=== PATIENT | female | born 1935 | race Caucasian/White ===

== ENCOUNTER 2020-07-12 13:36 | Inpatient (IN) | payer MEDICARE ==
[2020-07-12 14:13] LABS: HEMOGLOBIN 11.8 g/dL (12-16); MCH 28.3 pg (26.0-34.0); MCHC 32.9 g/dL (31.0-37.0); MEAN PLATELET VOLUME 7.3 fL (7.4-10.4); PLATELET COUNT 294 10x3/uL (130-400); RBC 4.19 10x6/uL (4.00-5.40); RDW 13.9 % (11.5-14.5); WBC 6.5 10x3/uL (4.8-10.8)
[2020-07-12 14:25] LABS: CALCIUM 9.7 mg/dL (8.5-10.1); CARBON DIOXIDE 27.1 mmol/L (21.0-32.0); CREATININE - SERUM 0.9 mg/dL (0.6-1.3); POTASSIUM - SERUM 5.1 mmol/L (3.5-5.1)
[2020-07-12 14:31] LABS: BILIRUBIN - TOTAL 0.29 mg/dL (0.2-1.3); PROTEIN - SERUM 7.6 g/dL (6.4-8.2)
--- NOTE | 2020-07-12 14:50 | NUR ---
URINE SPEC COLLECTED, LABELED AT BS AND SENT TO LAB
[2020-07-12 15:01] LABS: BILIRUBIN NEGATIVE (NEGATIVE); KETONE NEGATIVE (NEGATIVE); NITRITE NEGATIVE (NEGATIVE); UROBILINOGEN NORMAL mg/dL (< 2)
[2020-07-12 15:02] LABS: BACTERIA FEW HPF (NONE SEEN); SQUAMOUS EPITHELIAL 0-5 HPF (0-4); WHITE CELLS - URINE 0-5 HPF (0-4)
--- NOTE | 2020-07-12 15:20 | NUR ---
REPORT TO [facility] RUBI. ACCEPTED BY DR ARCHIBALD
[2020-07-12 15:40] VITALS: BP 118/80
--- NOTE | 2020-07-12 15:44 | NUR ---
ADMIT TO CARE. TRANSPORTED VIA WITH TECH. CONDITION STABLE
[2020-07-12 15:54] LABS: SARS-CoV-2 ANTIGEN NEGATIVE- SARS-COV-2 (NEGATIVE)
[2020-07-12 16:08] LABS: EOSINOPHILS 3 % (0-7); LYMPHOCYTES 23 % (15-50); MONOCYTES 1 % (2-11); NEUTROPHILS 73 % (40-80); PLATELET ESTIMATE NORMAL
[2020-07-12 16:33] VITALS: BP 157/75; BMI 18.2
--- NOTE | 2020-07-12 17:45 | NUR ---
NEW ADMIT TO DR UMSA ON [facility] FOR ALTERED MENTAT STATUS. REFERRED BY ANGELICA LAIRD WITH APS. PATIENT LIVES ALONE. CALLED HER SISTER 10 TIMES AND THEN WALKED TO HER NEIGHBORS HOUSE TO REPORT THAT HER SISTER AND HAD BEEN KIDNAPPED AND KILLED. SHE DROVE OUT OF TOWN AND GOT CONFUSED AND LOST AND HAD TO HAVE HELP GETTING BACK HOME. PATIENT CALLS POLICE MULTIPLE TIMES TO REPORT A BREAK IN TO HER HOME BUT THERE IS NO EVIDENCE OF A BREAK IN AND NOTHING MISSING. REPORTS TO POLICE AND APS THAT THE REMOTE CONTR[employer]S ARE LISTENING DEVICES. PATIENT WENT THROUGH [facility] FOR MEDICAL CLEARANCE. PATIENT ARRIVED TO UNIT VIA WHEELCHAIR, ACCOMPANIED BY ED STAFF. UPON ARRIVAL TO PENITENTIARY, PATIENT WAS ANXIOUS AND AGITATED. COOPERATIVE WITH ADMISSION ASSESSMENTS. PATIENT IS A FULL CODE. CONSENTS TO TREAT RECEIVED FROM PATIENT'S SISTER, ALVIN MOROCHO. CODE OF 7045 GIVEN. UNIT INFORMATION GIVEN TO ALVIN. PATIENT IN DINING ROOM AND EATING DINNER AT THIS TIME.
[2020-07-12] MEDS ORDERED: VOLTAREN100 GM TOPICAL (19:34)
[2020-07-12] MEDS ORDERED: MERIBIN5 MG PO (19:34)
[2020-07-12] MEDS ORDERED: VITAMIN E200 UNI1 PO (19:34)
[2020-07-12] MEDS ORDERED: CYANOCOBAL1000 MCG/4 SC (19:36)
[2020-07-12] MEDS ORDERED: VITAMIN D325 MC1 PO (19:36)
[2020-07-12] MEDS ORDERED: VITAMIN C500 M1 PO (19:37)
[2020-07-12] MEDS ORDERED: CENTRUM SILVER1 EAC3 PO (19:37)
[2020-07-12] MEDS ORDERED: VITAMIN A PO (19:39)
[2020-07-12 20:15] VITALS: BP 166/82
--- NOTE | 2020-07-13 01:57 | NUR ---
B) Patient is alert and oriented to person and place, very confused and states that she should not be here, demanding to know why she is here, very drammatic, I) Administered scheduled medications as ordered, monitored for safety, encouraged her to get some sleep, R) Medication compliant, restless and confused, refusing to sleep, P) Continue plan of care.
[2020-07-13 08:00] VITALS: BP 152/76
[2020-07-13 08:24] LABS: CHOL - HDL RATIO 2.2 ratio (2.3-4.1); LDL-HDL RATIO 1.1 ratio (1.5-3.5); THYROID STIMULATING HORMONE 3.83 uIU/mL (0.36-3.74)
[2020-07-13 10:04] VITALS: Wt 55.3 kg
--- NOTE | 2020-07-13 17:53 | NUR ---
Rec'd patient this am sitting in hallway. She is med compliant and takes her meds whole without difficulty. She is a/o to person and is very confused. She is delusional and has no insight of why she is here and will attempt to argue as to who brought her here, why, and she wants "to go home". She has been redirected multiple times today. She rec'd a phone call from her "sister" and her sister verified information to her that "eases my mind". She sat by herself most of the day and did not converse any of the patients but did talk to this nurse. She did not attend group today.
[2020-07-13 20:00] VITALS: BP 124/50; BP 128/76
--- NOTE | 2020-07-13 21:50 | NUR ---
PT IS ALERT AND ORIENTED TO SELF ONLY. SHE IS RECEIVED IN THE DAYROOM. SHE IS VERY PREOCCUPIED WITH HER PURSE. SHE STATES "I WOULD LIKE MY THINGS SO I CAN LEAVE THIS PROGRAM. I DONT WANT TO BE A PART OF THIS PROGRAM." COMPLIANT WITH HS MEDICATIONS. EASY TO REDIRECT BUT REQUIRES FREQUENT REDIRECTION. MONITOR FOR SAFETY.
[2020-07-14 08:14] LABS: RAPID PLASMA REAGIN Non Reactive (Non Reactive)
--- NOTE | 2020-07-14 11:56 | NUR ---
ALERT, CALM, CHEERFUL AND PLEASANT, COOPERATIVE, POOR STM...ASKING THE SAME QUESTIONS REPEATEDLY. MEDS ADMIN PER ORDERS WITH COMPLETE MED COMPLIANCE NOTED. NO MENTION OF HER FAMILY MEMBERS BEING KIDNAPPED. CONTINUE PLAN OF CARE, MONITORING FOR DELUSIONAL BEHAVIORS.
[2020-07-14 11:58] VITALS: BP 113/89
--- NOTE | 2020-07-14 15:24 | PSY ---
PATIENT NAME:BRAYAN MACHADO MEDICAL RECORD: [id number] : 35 LOCATION:[facility] ADMISSION DATE: 07/12/20 ACCOUNT: [id number] PSYCHIATRIC EVALUATION DATE OF EVALUATION: 07/13/20 IDENTIFYING DATA: The patient is 84 years old and she is admitted to the hospital on a voluntary basis. CHIEF COMPLAINT: None. HISTORY OF PRESENT ILLNESS: The patient clearly has a dementing illness, although I do not believe it has been formally diagnosed. Apparently, she is living alone. She will drive and get lost and then the police have to help her get home. She has been going to various neighbors and saying that her who is has been kidnapped and she has also been calling the police and reporting breakings into her house even though there is no evidence of this. Someone probably the neighbors of the police department have called adult protective services who have brought her to us. She is only oriented to person. She does not understand why she is here, but she is not mad or demanding to leave. When told that she has had some memory trouble and that we would like to try to help her with that, she is agreeable. PAST MEDICAL HISTORY: Unknown. The patient comes to us on no scheduled medications and on her review of systems, she denies everything. This may indeed all be true, but this is what she is saying and there is no evidence to the contrary at least at this point. PAST PSYCHIATRIC HISTORY: Similarly denied by the patient who only takes a number of vitamins at home. FAMILY HISTORY: Unknown. SOCIAL HISTORY: The patient is . She denies that she has children. She denies a history of drug or alcohol abuse. MENTAL STATUS EXAMINATION: The patient is awake, alert and oriented to person only. Her mood is flat. Her affect is constricted. Thought processes are circumstantial. Memory, concentration, and abstraction abilities are impaired and she denies that she would seek to harm herself or others as well as psychotic symptoms. ASSESSMENT: AXIS I: Major neurocognitive disorder of the Alzheimer's type. AXIS II: None. AXIS III: None. AXIS IV: Moderate. AXIS V: Global assessment of functioning is 30. PLAN: At this time, the patient is admitted to the hospital secondary to behavioral disturbances associated with a dementing illness. She will be comprehensively evaluated from both a medical, psychological, and social standpoint. She will be treated with both mood stabilizing and memory enhancing medications. TRANSINT:[id number] Voice Confirmation ID: [id number] DOCUMENT ID: [id number] MARCELLO MUSA MD at 1524 CC: [id number] DICTATION DATE: 07/13/201658 BIBLIOGRAPHIC SERVICES SPECIALIST: 07/13/202111 ADM IN [place] [id number] [place] [address]
[2020-07-14 20:00] VITALS: BP 138/69
--- NOTE | 2020-07-14 21:53 | NUR ---
RECEIVED PATIENT IN DAYROOM SITTING CALMLY, PLEASANT, ABLE TO MAKE ALL NEEDS AND CONCERNS KNOWN, COMPLIANT WITH MEDS, WILL FOLLOW POC
[2020-07-15 08:04] VITALS: BP 146/95
[2020-07-15 11:32] VITALS: BP 146/95
--- NOTE | 2020-07-15 15:14 | NUR ---
Rec'd patient this am sitting in a chair in hallway. She is A/O times 2 to person and situation but gets very confused and upset when she forgets why she's here. Short term and some terminal operator memory is very poor. She is ambulatory. She participated well in group therapy. She is med compliant and takes her meds whole without difficulty. She can become aggressive easily with her conversations about her going home. She will tell the person that they don't know what they are talking about.
[2020-07-15 20:00] VITALS: BP 140/61
--- NOTE | 2020-07-15 23:56 | NUR ---
RECEIVED PATIENT IN DAYROOM WITH OTHER PATIENTS, SHE IS CONFUSED BUT PLEASANT, COMPLIANT WITH MEDS, MAKES NEEDS KNOWN. WILL FOLLOW POC
[2020-07-16 10:36] VITALS: BP 122/86
--- NOTE | 2020-07-16 17:47 | NUR ---
PT SITTING AND EATING AT THIS TIME. PT IS CALM AND COOPERATIVE. PLESANT AND FRIENDLY WITH STAFF AND PEERS. COMPLIANT WITH MEDS, VITALS AND ASSESSMENTS. CAN MAKE NEEDS KNOWN. AMBULATES. CONFUSED. ALERT TO SELF ONLY. REDIRECT AND REORIENT NEEDED. PT STATED HER SISTER AND HER LIVES IN [facility]. THEY TOLD HER THERE WAS A HOUSE FOR SALE FOR 30,000 AND THEY WANTED HER TO GO LOOK AT THE HOUSE. SO, I DROVE OUT THERE AND IT WAS NOT THEM WHO ANSWERED THE PHONE. IT WAS AN IMPOSTER. SO I CANT FIGURE OUT WHAT HAPPENED." STAFF CONTS TO REDIRECT BEHAVIORS. DIFFICULT AT TIMES TO REDIRECT. WILL CONT OF CARE.
[2020-07-16 20:00] VITALS: BP 152/73
--- NOTE | 2020-07-17 01:14 | NUR ---
RECEIVED PATIENT ON UNIT, SHE INTIALLY DID NOT WANT TO TAKE HER MEDS BUT SHE DID TAKE THEM, SHE IS CONFUSED, SHE MENTIONS WANTING TO GO HOME OFTEN. WILL FOLLOW POC
[2020-07-17 07:30] VITALS: BP 165/85
--- NOTE | 2020-07-17 17:47 | NUR ---
Alert, calm, cooperative, pleasant, confused. Sister visited during visitation time. Meds admim. per orders with complete med compliance noted. No adverse reaction to meds. Cont POC., monitoring for delusional behavior.
[2020-07-17 23:36] VITALS: BP 169/61
--- NOTE | 2020-07-17 23:46 | NUR ---
RECEIVED IN HALLWAY OUTSIDE OF NURSES STATION. SOCIAL WITH STAFF AT TIMES. KEEPING TO HERSELF. CALM AND COOPERATIVE WITH CARE AND ASSESSMENT. NO DELUSIONAL STATEMENTS VOICED. REDIRECT AND REORIENT NEEDED. RESTING QUIETLY IN BED WITH EYES CLOSED AT THIS TIME. CONTINUE PLAN OF CARE.
[2020-07-18 07:30] VITALS: BP 153/96
--- NOTE | 2020-07-18 12:15 | NUR ---
RECEIVED PATIENT IN HALLWAY OUTSIDE OF NURSES STATION. SOCIALIZING WITH OTHER PATIENTS. CALM AND COOPERATIVE WITH CARE AND ASSESSMENT. DELUSIONAL. STATED SOMEONE IS IMPERSONATING HER SISTER AND HAS TAKEN OVER HER SISTER'S LIFE. CLAIMS THAT SOMEONE HAS STOLEN HER IDENTITY TWICE BEFORE. REDIRECT AND REORIENT NEEDED. EATING LUNCH AT THIS TIME. CONTINUE PLAN OF CARE.
--- NOTE | 2020-07-18 20:13 | NUR ---
RECEIVED IN HALLWAY OUTSIDE OF NURSES STATION. SOICAL WITH PEERS. CALM AND COOPERATIVE WITH CARE AND ASSESSMENT. NO DELUSIONAL STATEMENTS VOICED THIS EVENING. REDIRECT AND REORIENT NEEDED.CONTINUES TO SIT CALMLY IN HALLWAY. CONTINUE PLAN OF CARE.
[2020-07-18 23:05] VITALS: BP 151/72
[2020-07-19 08:00] VITALS: BP 149/73
--- NOTE | 2020-07-19 10:48 | PN ---
PATIENT:BRAYAN MACHADO MEDICAL RECORD: [id number] LOCATION:[facility] ADMISSION DATE: 07/12/20 PROGRESS NOTE DATE OF SERVICE: 07/14/2020 SUBJECTIVE: The patient's case was discussed with staff. She has no new complaint. OBJECTIVE: The patient is only oriented to person. She has been confused and rummaging through the belongings of others. It is with difficulty that she is redirected. She has been eating well. Unfortunately, she has not been sleeping well. ASSESSMENT: Dementia. PLAN: The patient has not been aggressive, but I do not think this is related to some improvement in her underlying condition, but rather related to the fact that she is constantly being supervised and has constant interaction with staff. She is making these delusional statements about her sister and the police. She clearly is not going to be able to live alone that is not going to be a realistic outcome for her. ASSESSMENT: Dementia. PLAN: The patient is going to be treated with a low dose of an antipsychotic medication secondary to her delusions. She will be monitored for clinical changes associated with its use. TRANSINT:[id number] Voice Confirmation ID: [id number] DOCUMENT ID: [id number] MARCELLO MUSA MD at 1048 CC: [id number] DICTATION DATE: 07/14/20 1547 WAREHOUSE HAND: 07/14/[address] [facility] [address] [place] [address]
--- NOTE | 2020-07-19 14:27 | NUR ---
Received patient sitting in hallway by the nurses station socializing with peers at this time. Calm and cooperative with assessment. Prescribed medications provided as ordered. Med compliant. No aggression noted at this time. Patient is confused and has little insight into her situation at this time. Patient is not delusional at this time. Redirect and reorient as needed. Fall precautions in place for safety. Will cpoc.
--- NOTE | 2020-07-19 21:36 | NUR ---
RECEIVED IN HALLWAY OUTSIDE OF NURSES STATION. SOCIAL WITH PEERS. CALM AND COOPERATIVE WITH CARE AND ASSESSMENT. NO DELUSIONAL STATEMENTS VOICED. REDIRECT AND REORIENT NEEDED. RESTING QUIETLY IN BED AT THIS TIME. CONTINUE PLAN OF CARE.
[2020-07-19 21:41] VITALS: BP 162/74
[2020-07-20 08:00] VITALS: BP 179/59
--- NOTE | 2020-07-20 12:46 | PN ---
PATIENT:BRAYAN MACHADO MEDICAL RECORD: [id number] LOCATION:[facility] ADMISSION DATE: 07/12/20 PROGRESS NOTE DATE OF SERVICE: 07/19/2020 SUBJECTIVE: The patient's case was discussed with staff. She has no new complaint. OBJECTIVE: The patient is sleeping and eating well. She has been calm and cooperative without any agitation today. ASSESSMENT: Dementia. PLAN: Current medicines have been reviewed and will be maintained. Long-term prognosis is guarded. TRANSINT:[id number] Voice Confirmation ID: [id number] DOCUMENT ID: [id number] MARCELLO MUSA MD at 1246 CC: [id number] DICTATION DATE: 07/19/20 170 EARLY CHILDHOOD DIRECTOR: 07/19/20 2018 ADM IN [place] [id number] [place] [address]
--- NOTE | 2020-07-20 12:46 | PN ---
PATIENT:BRAYAN MACHADO MEDICAL RECORD: [id number] LOCATION:[facility] ADMISSION DATE: 07/12/20 PROGRESS NOTE DATE OF SERVICE: 07/19/2020 SUBJECTIVE: The patient's case was discussed with staff. She has no new complaint. OBJECTIVE: The patient is disorganized with poor insight about her situation. She is eating and sleeping well. ASSESSMENT: Dementia. PLAN: The patient is absolutely and categorically incapable of living on her own. She must have 24-hour a day supervision and given the circumstances, it appears that the least restrictive environment is going to be a half-way. TRANSINT:[id number] Voice Confirmation ID: [id number] DOCUMENT ID: [id number] MARCELLO MUSA MD at 1246 CC: [id number] DICTATION DATE: 07/19/201718 PLANNING AIDE: 07/19/202038 ADM IN [facility] [address] [place] [address]
--- NOTE | 2020-07-20 15:04 | NUR ---
Rec'd patient this ambulatory in [facility]. She is a/o times to person. She has very poor insight of her care and needs. She is med compliant and takes meds whole. She is quiet, calm, and cooperative. She likes to sit and read in a corner by herself. She sat and participated in group/activities. She has not been observed to be having delusions or Hallucinations today.She is directable and redirectable. She is provided with positive feedback often.
--- NOTE | 2020-07-20 16:16 | NUR ---
Nutrition Re-Assessment Diet: Regular PO intake: 100% most all meals Last BM: 07/19/20 Wt: 111.2# (07/17/20); Admit Wt: 106# (07/12/20) Meds and labs reviewed Estimated nutrition needs: 1375-1650cal (25-30kcal/kg IBW), 55-66gms protein (1-1.2gms/kg), 1200-1450mL fluid (or per MD) Nutrition diagnosis: Underweight r/t presumably history of inadequate energy intake AEB BMI 18.2. - IMPROVING Nutrition goals: -PO intake =/>75% meals -Meet fluid needs -Stable weight/appropriate weight gain Recommendations/Interventions: -Recommend continue current diet. Will continue to honor food preferences. -Will continue to monitor PO intake and wt trend. -RD will follow-up within 7 days.
[2020-07-20 20:00] VITALS: BP 168/74
--- NOTE | 2020-07-21 03:15 | NUR ---
B)RECEIVED PATIENT SITTING OUTSIDE THE NURSE'S STATION. ORIENTED TO PERSON AND PLACE. NO INSIGHT INTO THE REASON FOR HOSPITALIZATION. QUIET AND INTERACTS MINIMALLY WITH PEERS. CALM AND COOPERATIVE. I)ADMINISTER MEDS AND MONITOR COMPLIANCE. REORIENT NEEDED. R)MED COMPLIANT. POOR REORIENTATION DUE TO IMPAIRED ABILITY TO RETAIN INFORMATION. P)CONTINUE POC AND PROVIDE SAFE ENVIRONMENT.
[2020-07-21 09:29] VITALS: BP 150/86
--- NOTE | 2020-07-21 14:40 | NUR ---
Rec'd patient this am ambulatory. She is med compliant and took meds without diff. She is a/o to person. She sat in group/acivities and then she sat alone and was reading a book. She will visit with staff if they sat down beside her. She can be very confused at times but can be quiet and cooperative.She is directable and directable.
--- NOTE | 2020-07-21 15:14 | PN ---
PATIENT:BRAYAN MACHADO MEDICAL RECORD: [id number] LOCATION:[facility] ADMISSION DATE: 07/12/20 PROGRESS NOTE DATE OF SERVICE: 07/20/2020 SUBJECTIVE: The patient's case was discussed with staff. She has no new complaint. OBJECTIVE: The patient denies that she would seek to harm herself or others. She is tolerating her medicines well. She is eating and sleeping well. ASSESSMENT: Dementia. PLAN: The patient is in need of placement. Adult protective services are involved. At this point, she cannot be placed until guardianship is obtained. TRANSINT:[id number] Voice Confirmation ID: [id number] DOCUMENT ID: [id number] MARCELLO MUSA MD at 1514 CC: [id number] DICTATION DATE: 07/20/20 1735 LOG CHIPPER OPERATOR: 07/21/20 0053 ADM IN [place] [id number] [place] [address]
[2020-07-21] MEDS ORDERED: LOPRESSOR25 MG PO (16:06)
[2020-07-21] MEDS ORDERED: PERPHENAZINE2 MG PO (16:07)
[2020-07-21] MEDS ORDERED: NAMENDA5 MG PO (16:07)
[2020-07-21] MEDS ORDERED: TRAZODONE HCL50 MG PO (16:07)
[2020-07-21 20:00] VITALS: BP 143/79
--- NOTE | 2020-07-22 01:27 | NUR ---
B)RECEIVED PATIENT SITTING OUTSIDE THE NURSE'S STATION. ORIENTED TO SELF AND PLACE. NO INSIGHT TO THE REASON FOR HOSPITALIZATION. INTERACTIVE. CALM AND COOPERATIVE. I)ADMINISTER MEDS AND MONITOR COMPLIANCE. REORIENT NEEDED. R)MED COMPLIANT. REORIENTS HOWEVER IS FORGETFUL AND DOES NOT RETAIN INFORMATION. P)CONTINUE POC AND PROVIDE SAFE ENVIRONMENT.
[2020-07-22 10:11] VITALS: BP 137/75
--- NOTE | 2020-07-22 13:46 | NUR ---
Rec'd this am sitting in a chair in the hallway. She is a/o times 3 to person, place, and situation. She is med compliant and takes meds whole without diff. She sat with group but read her book or conversed with a male patient sitting next to her. She is directable and redirectable. She has had no signs of Hallucintations or Delusions so far this shift.
[2020-07-22 20:00] VITALS: BP 161/88
--- NOTE | 2020-07-22 22:37 | NUR ---
PT IS ALERT AND ORIENTED TO SELF AND PLACE. ABLE TO AMBULATE AND VOICE NEEDS AND WANTS. CALM AND COOPERATIVE WITH STAFF. COMPLIANT WITH ALL MEDICATIONS. VERY PLEASANT. OBSERVED SOCIALIZING WITH PEERS. MONITOR FOR SAFETY.
[2020-07-23 09:39] VITALS: BP 141/55
--- NOTE | 2020-07-23 18:39 | NUR ---
IS ALERT AND ORIENTED X 3.COMPLIANT WITH STAFF AND MEDS.MOSTLY KEEPS TO SELF,OBSERVING OTHERS.NO NEGATIVE BEHAVIORS OBSERVED BY THIS NURSE TODAY.WILL CONTINUE WITH CURRENT PLAN OF CARE,MONITOR FOR CHANGES AND SAFETY.
[2020-07-23 22:23] VITALS: BP 162/80
--- NOTE | 2020-07-23 23:56 | NUR ---
PT IS ALERT AND ORIENTED TO SELF AND PLACE. SHE IS RECEIVED IN THE HALLWAY OUTSIDE THE NURSES STATION SOCIALIZING WITH PEERS. COMPLIANT WITH ALL MEDICATIONS. EASY TO REDIRECT. ABLE TO VOICE NEEDS AND WANTS. MONITOR FOR SAFETY.
[2020-07-24 09:21] VITALS: BP 165/72
--- NOTE | 2020-07-24 17:39 | NUR ---
Rec'd patient up this am sitting in a chair in the hallway. She is med compliant and takes her meds whole. She is a/o to person and situation. She is directable and redirectable. She did well today/ She sat in group today but sat and read her book.
--- NOTE | 2020-07-24 20:27 | NUR ---
RECEIVED IN HALLWAY OUTSIDE OF NURSES STATION. SITTING CALMLY WITH PEERS AT HER SIDE. CALM AND COOPERATIVE WITH CARE AND ASSESSMENT. NO DELSUIONAL STATEMENTS VOICED THIS EVENING. REDIRECT AND REORIENT NEEDED. CONTINUES TO SIT CALMLY IN HALLWAY. CONTINUE PLAN OF CARE.
[2020-07-24 21:48] VITALS: BP 169/79
[2020-07-25 08:00] VITALS: BP 154/67
--- NOTE | 2020-07-25 08:00 | NUR ---
REC'D PT SITTING IN CHAIR BY NURSES STATION SOCAILIZING WITH PEERS. AWAKE AND ALERT X 2. PRESCRIBED MEDS PROVIDED ORDERED. MED COMPLIANT. REDIRECT AND REORIENT NEEDED. NO BEHAVIORS NOTED. FALL PRECAUTIONS IN PLACE. WILL CPOC.
--- NOTE | 2020-07-25 14:38 | PN ---
PATIENT:BRAYAN MACHADO MEDICAL RECORD: [id number] LOCATION:[facility] ADMISSION DATE: 07/12/20 PROGRESS NOTE DATE OF SERVICE: 07/21/2020 SUBJECTIVE: The patient's case was discussed with staff. She has no new complaint. OBJECTIVE: The patient is in good behavioral control, pleasant and cooperative, but very confused. ASSESSMENT: Dementia. PLAN: The patient has made no further statements that are delusional. She, however, is very insistent that she can care for herself at home, which is false. ASSESSMENT: Dementia. PLAN: Current medicines will be maintained. I am going to increase the dose of her Seroquel slightly. TRANSINT:[id number] Voice Confirmation ID: [id number] DOCUMENT ID: [id number] MARCELLO MUSA MD at 1438 CC: [id number] DICTATION DATE: 07/21/20 1554 LENS MAKER: 07/21/20 2221 ADM IN [place] [id number] [place] [id number]
[2020-07-25 20:00] VITALS: BP 154/71
--- NOTE | 2020-07-25 20:23 | NUR ---
RECEIVED IN HALLWAY SITTING QUIETLY WITH PEERS AT HER SIDE. CALM AND COOPERATIVE WITH CARE AND ASSESSMENT. NO DELUSIONAL STATEMENTS VOICED THIS EVENING. REDIRECT AND REORIENT NEEDED. CONTINUES TO SIT CALMLY IN HALLWAY. CONTINUE PLAN OF CARE.
[2020-07-26 08:02] VITALS: BP 131/80
--- NOTE | 2020-07-26 10:45 | NUR ---
PATIENT DISCHARGED TO [facility]. PAPERWORK FAXED AND HARD COPY SENT WITH PATIENT. PERSONAL BELONGINGS SENT WITH PATIENT. TRANSPORTED VIA [facility]. NO SIGNS OF DISTRESS AT TIME OF DISCHARGE.
--- NOTE | 2020-07-26 11:52 | PN ---
PATIENT:BRAYAN MACHADO MEDICAL RECORD: [id number] LOCATION:[facility] ADMISSION DATE: 07/12/20 PROGRESS NOTE DATE OF SERVICE: 07/25/2020 SUBJECTIVE: The patient's case was discussed with staff. She has no new complaint. OBJECTIVE: The patient is insistent that she go back to her condominium. Efforts to steer her through reason that it is not possible for her to live alone have failed. ASSESSMENT: Dementia. PLAN: The patient's sister has power of director of maternity services and is going to be placing her in a assisted soon. Unfortunately, the patient is not going to accept this. TRANSINT:[id number] Voice Confirmation ID: [id number] DOCUMENT ID: [id number] MARCELLO MUSA MD at 1152 CC: [id number] DICTATION DATE: 07/25/20 1613 TIPPLE GREASER: 07/25/202032 ADM IN [place] [id number] [place] [address]
--- NOTE | 2020-07-27 14:02 | DS ---
PATIENT:BRAYAN MACHADO :35 MEDICAL RECORD: [id number] DISCHARGE SUMMARY ADMISSION DATE: 07/12/20 DISCHARGE DATE: 07/26/20 IDENTIFYING DATA: The patient is 84 years old and she was admitted to the hospital on a voluntary basis. CHIEF COMPLAINT: None. HISTORY OF PRESENT ILLNESS: The patient clearly has a dementing illness and she has been living alone. She had been getting lost when trying to drive and had called the police numerous times to help her get home. She had also been going to the neighbor's houses and reporting that her had been kidnapped and wanting them to call the police. Again, the police would also being called to the house because she was reporting break-ins, even though there was no evidence of this. HOSPITAL COURSE: The patient was admitted to the hospital and evaluated from both a medical, psychological, and social standpoint. She was found to have an advanced dementia and it was worked out with her sister that the least restrictive environment that could meet her needs was a mcfp. She was subsequently transitioned to a m[facility]. DISCHARGE DIAGNOSES: AXIS I: Major neurocognitive disorder of the Alzheimer's type. AXIS II: None. AXIS III: None. AXIS IV: Moderate. AXIS V: Global assessment of functioning is 40. PLAN: At the time of discharge, the patient was in good behavioral control with limited insight about her condition. She will be followed on an outpatient basis by her primary care m[facility] physician. TRANSINT:[id number] Voice Confirmation ID: [id number] DOCUMENT ID: [id number] MARCELLO MUSA MD at 1402 CC: [id number] DICTATION DATE: 07/26/20 1556 JEWELSMITH: 07/27/20 0411 DIS IN 07/26/20 [place] [id number] [place] [address]
== END 2020-07-26 10:45 | DRG 57 ==
LOC: D.ER 13:36 → D.PSYCH 15:50
PROVIDERS: Emergency Medicine; ADMIT Psychiatry & Neurology Psychiatry; ATTEND Psychiatry & Neurology Psychiatry
DX: G30.9 Alzheimer's disease, unspecified (principal); R44.3 Hallucinations, unspecified; F02.80 Dementia in other diseases classified elsewhere, unspecified severity, without behavioral disturbance, psychotic disturbance, mood disturbance, and anxiety; D64.9 Anemia, unspecified; E78.00 Pure hypercholesterolemia, unspecified; I10 Essential (primary) hypertension